=== PATIENT | male | born 1980 | race Caucasian/White ===

== ENCOUNTER 2020-04-05 09:07 | Emergency (ER) | payer BC, SELFPAY ==
[2020-04-05 09:08] VITALS: BP 152/105; PULSE 85; RESP 16; TEMP 36.3; O2SAT 97; BMI 27.9
--- NOTE | 2020-04-05 09:42 | HMH.EDUTC ---
[facility] Disposition Clinical Impression: Exposure to COVID-19 virus Disposition: Home, Self-Care Condition on Discharge: Good Instructions: DI for COVID-19 (Suspected or Confirmed ), Coronavirus Disease 2019, Preventing the Spread of Coronavirus Discharge Instructions Additional Instructions: *Monitor Temp, Over the counter Motrin or Tylenol as directed/as needed Tylenol every 4 hours and Motrin every 6 hours (as long as your family doctor has told you that you can take it) for fever or pain. and straight to ER if unable to lower temp less than 101.0 after medication given Follow up IMMEDIATELY for new or worsening symptoms or no Noticeable improvement over the next 48-72 hours. 911 for difficulty breathing or swallowing You were tested for today for COVID19 your test result should be back in the next 24-48 hours, you may call to the [facility] to see if your test results are back in the next 48 hours [phone] [facility] hours are 9am-9pm You was given a handout with instructions for Self Quarantine and Self isolation for while you wait on test results and what to do if they are positive If you are positive the Health Dept will be contacting you also Prescriptions: guaiFENesin [Mucinex 600mg tablet] 600 mg PO BID PRN #[email or web address] PRN Reason: Cough Transmission Status: Pending to [facility] Referrals: Gab Kay MD [Primary Care Provider] - As needed Forms: Work/School Release Time of Disposition: 09:42 Medical Decision Making - Khalif Inquiry Pt receiving controlled substance: No Khalif was queried for this patient: No Vital Signs: 04/05/20 09:08 Temperature 97.4 F L Temperature Source Oral Pulse Rate [Right] 85 Respiratory Rate 16 Blood Pressure [Right Arm] 152/105 H Blood Pressure Mean [Right Arm] 120 02 Sat by Pulse Oximetry 97 Orders (Tests/Meds): ORDERS Category Date Time Status Covid-19 Nasal PCR Sendout [facility] Stat Lab 04/05/20 09:24 Received Medical Decision Narrative: Patient blood pressure elevated patient states that he was nervous about getting tested [facility] HPI - General Stated complaint: loss of smell and taste, exposure Time Seen by Provider: 04/05/20 09:42 Description of Symptoms (Recalled from Triage Doc. by RN): pt request covid test pt c/o coughing, loss of smell and taste HEENT Symptoms (Recalled from RN notes): No Resp Symptoms (Recalled from RN notes): Yes Skin Symptoms (Recalled from RN notes): No MS Symptoms (Recalled from RN notes): No Functional Status (Recalled from RN notes): wnl - History of Present Illness Provider Complaint: Patient states that his is positive for COVID and now he has started to have symptoms States that he has been having cough, loss of taste and smell States that he is nervous about getting tested but wanted to see if he has it or not - Related Data Previous Rx's Medication Instructions Recorded guaiFENesin [Mucinex 600mg tablet] 600 mg PO BID PRN #20 [email or web address] 04/05/20 Allergies Allergy/AdvReac Type Severity Reaction Status Date / Time No Known Allergies Allergy Verified 04/05/20 09:35 - Worker's Comp Is this a Worker's Comp case?: No Is this an [employer] Worker's Comp?: No Is this a [place] Worker's Comp?: No [facility] History - Hepatitis A Screen Drug use history?: No High risk sexual behaviors?: No History of sexually transmitted infection?: No Currently employed?: No Childcare worker?: No Do you have indoor plumbing?: Yes Do you have electricity?: Yes Attestation statement:: This patient has been screened for Hepatitis A risk factors. I have reviewed the patient's past medical history: Yes Medical History: Denies:: Cancer, Diabetes Mellitus Type 1, Diabetes Mellitus Type 2, Hypertension, MRSA Other Surgeries: Yes: No Previous Surgery Amputation: No Fractures: No - Social History Smoking Status: Current every day smoker Tobacco Type: cigarettes Alcohol Intake: current Alcohol Intake Frequency:: a fe
[2020-04-05 09:43] VITALS: BP 152/105; PULSE 85; RESP 16; TEMP 36.3; O2SAT 97
[2020-04-06 10:44] LABS: Covid-19 Nasal PCR Sendout P&C POSITIVE
--- NOTE | 2020-04-06 16:45 | PC.NURSE ---
PT NOTIFIED OF POSITIVE COVID RESULTS
== END 2020-04-05 09:46 | disposition home or self-care (01) ==
PROVIDERS: Emergency Provider Nurse Practitioner; PCP Internal Medicine Adolescent Medicine
DX: U07.1 COVID-19 (principal); F17.210 Nicotine dependence, cigarettes, uncomplicated
CPT/HCPCS: 99202; G0463; U0004